=== PATIENT | male | born 1970 | race Caucasian/White ===

== ENCOUNTER → 2017-03-18 | Day surgery (SDC) | payer MEDICARE, OTHER ==
[~2017-03-18] MED LIST: AMITIZA8 MCG; LEVOTHYROXINE25 MC1 PO; METOPROLOL TART25 MG PO; OXYCODONE HCL5 MG PO; OXYCONTIN20 MG PO; PANTOPRAZOLE SO40 MG PO; VITAMIN B122500 MC1
--- NOTE | ~2017-03-18 | EKG ---
PATIENT: MIKAYLA MEJIA UNIT #: [id number] Ventricular Rate: 74 BPM Atrial Rate: 74 BPM P-R Interval: 144 ms QRS Duration: 96 ms Q-T Interval: 372 ms QTC Calculation(Bezet): 412 ms P [place]: 34 degrees Calculated R [place]: 12 degrees Calculated T [place]: 43 degrees Diagnosis Line: Normal sinus rhythm Diagnosis Line: Possible Lateral infarct , age undetermined Diagnosis Line: Abnormal ECG Diagnosis Line: No previous ECGs available Diagnosis Line: Confirmed by BEBE DONAHUE MD ([id number]) on Diagnosis Line: 03/19/2017 7:59:12 AM INTERPRETING MD: GODFREY LAN
--- NOTE | ~2017-03-18 | OR ---
Unit #: [id number] #: [id number] Patient: MIKAYLA MEJIA [id number] [address] [address] [id number] O MR#: [id number] NAME: MIKAYLA MEJIA ROOM: Date of Procedure: 03/18/2017 Admission Date: 03/18/2017 Surgeon: Que Nick M.D. : 1970 Attending Physician: Que Nick M.D. Primary Care Physician: Russ Castro Jr., M.D. OPERATIVE REPORT PREOPERATIVE DIAGNOSIS Right shoulder adhesive capsulitis. POSTOPERATIVE DIAGNOSIS Right shoulder adhesive capsulitis. PROCEDURE PERFORMED Right shoulder arthroscopic lysis of adhesions with manipulation under anesthesia. MANAGER CASE MANAGEMENT Mikal Abreu CFA. ANESTHESIA General endotracheal. COMPLICATIONS None. SPECIMENS None. DRAINS None. SURGICAL IMPLANTS None. INDICATION FOR PROCEDURE Mr. Mejia is a 46-year-old gentleman with multiple medical comorbidities including dermatomyositis. The patient has had progressive loss of motion of the shoulder. MRI did reveal that he has capsulitis in the setting of myositis. It was felt that improving the patient's motion would help his function. Elective surgery discussed with the patient. He wished to proceed with lysis of adhesions with manipulation under anesthesia. He has had prior surgery. The informed consent was obtained. Risks include, but not limited to, infection, bleeding, nerve injury, blood clots, risks associated with anesthesia, need for further surgery, and possibly . DESCRIPTION OF PROCEDURE On 03/18/2017, the patient was seen in the preoperative holding area, where his surgical site was marked. Preoperative antibiotics were Unit #: [id number] #: [id number] Patient: MIKAYLA MEJIA received. H and P and consent updated. Preoperative block performed. The patient was taken to the operating room and provided general anesthesia. Right upper extremity was prepped and draped in typical sterile fashion. Time-out performed confirming the correct surgical site and procedure. He was in the beach chair position. At this point, a posterior portal was created with an 11-blade. A blunt trocar carefully inserted into the right shoulder. There was significant tightness noted. Anterior portal created. Prior sutures noted within the joint. These were debrided. The 90 degree wand was used to do a full anterior capsular release. In similar fashion, the camera was then moved to the anterior portal and the wand was placed in the posterior portal. Posterior capsular release was performed as well. There were some degenerative changes of the joint. The shoulder joint was still noted to be extremely tight. Once the lysis of adhesions was completed, the instruments were removed. Closed manipulation of the shoulder was then performed. Gentle pressure placed on the shoulder in four flexion plane, abduction plane, internal and external rotation planes. Once this felt adequate release of the tissues noted, the wounds were closed. Due to the severe myositis, the patient still lacked significant amount of motion. It was felt that any further pressure would potentially cause more harm than good to try to release the tissues. The two portal wounds were closed with 3-0 nylon suture followed by Xeroform, 4x4s, ABD pad, and a sling was placed. The patient was subsequently awakened from general anesthesia in stable condition and taken to PACU postoperatively. POSTOPERATIVE PLAN The patient will be discharged home. Follow up in the office 7 to 10 days. No complications encountered during the surgical procedure. Dictated by... Tera Leger/oscar TD: 03/19/2017 02:46 JOB #: [id number] OPERATIVE REPORT Page 1 of 1 X X PROCEDURE OPERATIVE NOTE
[2017-03-18 11:06] LABS: BASOPHIL% 0.4 % (0-2.5); EOSINOPHIL% 1.4 % (0.0-7.0); HEMATOCRIT 35.5 % (38.0-50.0); HEMOGLOBIN 11.5 gm/dL (13.0-16.0); LYMPHOCYTE# 0.8 X10e3 (1.0-3.5); LYMPHOCYTE% 32.5 % (17.0-45.0); MEAN CELL VOLUME 84.2 FL (83-96); MEAN CORPUSCULAR HEMOGLOBIN 27.3 PG (28-34); MEAN CORPUSCULAR HGB CONC 32.4 g/dL (30-36); MEAN PLATELET VOLUME 6.4 FL (6.5-11.5); MONOCYTE# 0.2 X10e3 (0-1.0); MONOCYTE% 8.5 % (3.0-12.0); NEUTROPHIL# 1.4 X10e3 (1.5-7.1); NEUTROPHIL% 57.2 % (40-75); PLATELET COUNT 171 X10e3 (140-420); RED BLOOD COUNT 4.22 X10e (3.90-5.60); RED CELL DISTRIBUTION WIDTH 14.1 % (11.0-15.5); WHITE BLOOD COUNT 2.4 X10e3 (4.0-10.5)
[2017-03-18 11:07] LABS: DIFF IND YES
[2017-03-18 11:31] LABS: BUN/CREATININE RATIO 17.5; CALCIUM SERUM 8.8 mg/dL (8.4-10.2); CREATININE SERUM 0.8 mg/dL (0.6-1.4); GLOM FILT RATE Estimated 105.7 mL/min (>60); POTASSIUM 3.9 mmol/L (3.5-5.1)
[2017-03-18 11:37] LABS: PLATELET ESTIMATE NORMAL (NORMAL)
== END | disposition home or self-care (01) ==
LOC: CSUR 10:02
PROVIDERS: Orthopaedic Surgery
DX: M75.01 Adhesive capsulitis of right shoulder (principal); E03.9 Hypothyroidism, unspecified; K21.9 Gastro-esophageal reflux disease without esophagitis; I10 Essential (primary) hypertension; K58.9 Irritable bowel syndrome, unspecified
CPT/HCPCS: 80048; 85025; 93005; J0171; J0690; J1100; J2250; J2370; J2405; J2710; J2795; J3010